=== PATIENT | male | born 1995 | race Caucasian/White ===

== ENCOUNTER 2021-03-18 12:07 | Outpatient (REF) | payer BC, SELFPAY ==
[2021-03-18 14:03] LABS: COVID-19 Test Negative (Negative)
== END 2021-03-18 12:08 | disposition home or self-care (01) ==
LOC: HO.LAB 12:07
PROVIDERS: Visit Provider Internal Medicine
DX: Z20.822 Contact with and (suspected) exposure to COVID-19 (principal)
CPT/HCPCS: 36415; 87635; C9803

== ENCOUNTER 2021-03-27 11:43 | Outpatient (REF) | payer BC, SELFPAY ==
[2021-03-27 14:13] LABS: COVID-19 Test Positive (Negative); IDNOW Serial# 16C4AD1C
== END 2021-03-27 11:44 | disposition home or self-care (01) ==
LOC: HO.LAB 11:43
PROVIDERS: Visit Provider Internal Medicine
DX: Z20.822 Contact with and (suspected) exposure to COVID-19 (principal)
CPT/HCPCS: 36415; 87635; C9803

== ENCOUNTER 2024-01-23 04:10 | Emergency (ER) | payer MEDICAID, SELFPAY ==
--- NOTE | 2024-01-23 | ECG_ITS ---
Test Reason : CHEST PAIN Blood Pressure : / mmHG Vent. Rate : 066 BPM Atrial Rate : 066 BPM P-R Int : 124 ms QRS Dur : 146 ms QT Int : 420 ms P-R-T Axes : 063 -16 080 degrees QTc Int : 440 ms Normal sinus rhythm [id number]-[id number]-Fegjn Abnormal ECG No previous ECGs available Referred By: Generic ED Physician Electronically Signed By:Yovany Kramer
--- NOTE | ~2024-01-23 | XR_ITS ---
EXAMINATION: XR CHEST CLINICAL INFORMATION: Cough. COMPARISON: None available. TECHNIQUE: Frontal view of the chest was obtained. FINDINGS: The lung volumes are low. The cardiomediastinal silhouette is normal. There is no focal lung consolidation or pleural effusions. The bony structures and the soft tissues are unremarkable. XR/XR chest 1V IMPRESSION: Low lung volumes. No evidence for acute cardiopulmonary process. Electronically signed by: Chico Darling MD 01/23/2024 06:07 AM EDT
[2024-01-23 04:19] VITALS: BP 141/81; PULSE 69; RESP 20; TEMP 36.8; O2SAT 97; BMI 26.6
--- NOTE | 2024-01-23 04:42 | ED.URI ---
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 body aches for last 3 days getting worse dry cough also felt light headed Related Data Previous Rx's ?Medication ?Instructions ?Recorded benzonatate 200 mg capsule 200 mg PO TID PRN cough #20 caps 01/23/24 cefuroxime axetil 500 mg tablet 500 mg PO BID 7 days #14 tabs 01/23/24 Allergies Allergy/AdvReac Type Severity Reaction Status Date / Time Penicillins Allergy Hives Verified 01/23/24 04:22 Review of Systems Review of Systems: Yes all other systems are reviewed and are negative [facility] Social History Social History Smoked in Last 30 Days: No Use of substances other than those prescribed or required for medical reasons: No Advance Directives: No Physical Exam Vital Signs: Vital Signs: Last Vital Signs Temp 98.6 F 01/23/24 06:11 Pulse 74 01/23/24 06:11 Resp 16 01/23/24 06:11 BP 130/96 H 01/23/24 06:11 Pulse Ox 98 01/23/24 06:11 O2 Del Method Room Air 01/23/24 06:11 BMI result Body Mass Index 26.6 Appearance: Alert. Oriented X3. No acute distress. ENT: Pharynx erythematous Oral Mucosa moist Neck: Normal inspection. Neck supple. CVS: Normal heart rate and rhythm. Pulses normal. Respiratory: No respiratory distress. Equal air entry bilateral, no wheezing/rales/rhonchi Abdomen: Soft and nontender. Bowel sounds are present, Skin: Skin warm and dry. Normal skin color. Normal skin turgor. Extremities: No lower extremity edema. No calf tenderness Neuro: Oriented X 3. No motor deficit. Medications Administered Discontinued Medications Generic Name Dose Route Start Last Admin Trade Name Freq PRN Reason Stop Dose Admin Benzonatate 200 mg 01/23/24 04:48 01/23/24 05:27 Benzonatate 100 Mg Capsule PO 01/23/24 04:49 200 mg ONCE ONE Administration Cefuroxime Axetil 500 mg 01/23/24 04:48 01/23/24 05:27 Cefuroxime Axetil 500 Mg Tablet PO 01/23/24 04:49 500 mg ONCE ONE Administration Medical Decision Making Medical Decision Making [facility] Narrative: Patient has significant pharyngeal erythema although strep test was negative COVID flu RSV also negative clinically look like strep throat patient will prescribe cefuroxime advised to follow with PCP if not better Lab Data MDM Lab Attestation statement: I reviewed the patient's lab results. Labs: Lab Results 01/23/24 Range/Units 04:47 Influenza Type A (PCR) NEGATIVE (Negative) Influenza Type B (PCR) NEGATIVE (Negative) RSV RNA Qual (PCR) NEGATIVE (Negative) SARS-CoV-2 RNA (RT-PCR) NEGATIVE (Negative) S. pyogenes GrpA YVAN Negative (Negative) Discharge Plan Discharge Clinical Impression: Pharyngitis Patient Disposition: Home, Self-Care Instructions: Pharyngitis (ED) Additional Instructions: Drink plenty of fluids Take antibiotics and cough drops as prescribed Follow up with PCP if not better Prescriptions: New benzonatate 200 mg capsule 200 mg PO TID PRN (Reason: cough) Qty: 20 0RF cefuroxime axetil 500 mg tablet 500 mg PO BID 7 Days Qty: 14 0RF Stand Alone Forms: Work/School Release Interventions: ED Discharge Assessment Last Done: 01/23/24 06:11 Discharge Date/Time: 01/23/24 06:12 Print Language: Sami
--- NOTE | 2024-01-23 04:51 | PC.NURSE ---
pt from home, a&ox4, respirations even and unlabored. pt reporting onset up respiratory symptoms x3 days. pt reports congestions, chest heaviness, nausea and blurred vision. pt denies sob and vomiting and diarrhea. 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 vss.
[2024-01-23] MEDS: cefuroxime axetiL 500 MG TABLET PO (05:27)
[2024-01-23] MEDS: Benzonatate 100 MG CAPSULE 200 MG PO (05:27)
--- NOTE | 2024-01-23 05:28 | PC.NURSE ---
pt medicated per mar, tolerated well with water.
[2024-01-23 05:32] LABS: Influenza A PCR NEGATIVE (Negative); Influenza B PCR NEGATIVE (Negative); Resp Syncy Virus RNA Qual PCR NEGATIVE (Negative); SARS COV2 PCR INHOUSE NEGATIVE (Negative)
[2024-01-23 05:48] LABS: IDNOW Serial# 6674DD1D; Strep A Nucleic Acid Negative (Negative)
[2024-01-23 06:11] VITALS: BP 130/96; PULSE 74; RESP 16; TEMP 37; O2SAT 98
== END 2024-01-23 06:12 | disposition home or self-care (01) ==
PROVIDERS: Emergency Provider Internal Medicine
DX: J02.9 Acute pharyngitis, unspecified (principal); R05.9 Cough, unspecified; Z03.818 Encounter for observation for suspected exposure to other biological agents ruled out
CPT/HCPCS: 0241U; 71045; 87651; 93005; 99283; 99284

== ENCOUNTER → 2024-01-23 04:28 | Outpatient (BNV) | payer SELFPAY | PROVIDERS: Emergency Provider Internal Medicine; Visit Provider Internal Medicine Cardiovascular Disease | DX: R94.31 Abnormal electrocardiogram [ECG] [EKG] (principal) | CPT/HCPCS: 93010 ==

== ENCOUNTER 2024-09-11 01:33 | Emergency (ER) | payer MEDICAID, SELFPAY ==
[2024-09-11 01:36] VITALS: BP 140/70; PULSE 104; O2SAT 99
[2024-09-11 01:38] VITALS: BP 119/71; PULSE 87; RESP 23; TEMP 36.4; O2SAT 99; BMI 31.0
--- NOTE | 2024-09-11 02:05 | ED.GENADULT ---
HPI - General Adult General Chief complaint: General Medical Stated complaint: Allergic reaction back and chest Time Seen by Provider: 09/11/24 01:40 Source: patient and EMS Mode of arrival: EMS Limitations: no limitations History of Present Illness ED Provider: Dr. Lexi Olmedo HPI narrative: Patient comes to the emergency room complaining of sunburn in the torso. Patient complaining of itching in his and pain. Patient called the ambulance, he was given IV Benadryl, states that the itchiness improve. Patient states that he has been trying to keep up with his fluids Related Data Previous Rx's ?Medication ?Instructions ?Recorded benzonatate 200 mg capsule 200 mg PO TID PRN cough #20 caps 01/23/24 cefuroxime axetil 500 mg tablet 500 mg PO BID 7 days #14 tabs 01/23/24 ketorolac 10 mg tablet 10 mg PO Q8H PRN pain #10 tabs 09/11/24 Allergies Allergy/AdvReac Type Severity Reaction Status Date / Time No Known Allergies Allergy Verified 09/11/24 01:44 Review of Systems Review of Systems: Constitutional : No Weight loss, No Fever, No Chills, No Night Sweats, No Fatigue, No Malaise ENT/Mouth : No Hearing loss, No Ear Pain, No Nasal Congestion, No Sinus Pain, No Hoarseness, No sore throat, No Rhinorrhea, No Swallowing Difficulty Eyes: No Eye Pain, No Swelling, No Redness, No Foreign Body, No Discharge, No Vision Changes Cardiovascular : No Chest Pain, No SOB, No Dyspnea on Exertion, No Orthopnea, No Edema, No Palpitations Respiratory : No Cough, No Sputum, No Wheezing, No Smoke Exposure, No Dyspnea Gastrointestinal : No Nausea, No Vomiting, No Diarrhea, No Constipation, No abdominal Pain, No Hematochezia, No Melena Genitourinary : no irregular bleeding, No Dysuria, No Urinary Frequency, No Hematuria, No Urinary Incontinence, No Urgency, No Flank Pain, No Urinary Flow Changes, No Hesitancy Musculoskeletal : No joint pain, No Myalgias, No Joint Swelling Skin : Complaining of an itchy skin, some burn in the shoulders back and upper chest Neuro : No Weakness, No Numbness, No Paresthesias, No Loss of Consciousness, No Dizziness, No Headache Psych : No Anxiety/Panic, No Depression, No SI/HI/AH/VH, No Social Issues, Heme/Lymph: No Bruising, No Bleeding,No Lymphadenopathy Endocrine : No Polyuria, No Polydipsia, No Temperature Intolerance [facility] Social History Social History Advance Directives: No Advance Directives Information Provided: Yes Physical Exam ED Vital Signs: Vital Signs - 24 hr 09/11/24 01:38 Temperature 97.6 F Pulse Rate 87 Respiratory Rate 23 H Blood Pressure 119/71 Pulse Oximetry 99 Oxygen Delivery Method Room Air BMI result Body Mass Index 31.0 Const Other: Appearance: Alert. Oriented X3. No acute distress. Eyes: Pupils equal, round and reactive to light. ENT: Pharynx normal. Neck: Normal inspection. Neck supple. No lymph nodes noted. No crepitus CVS: Normal heart rate and rhythm. Pulses normal. Normal S1 and S2 Respiratory: No respiratory distress. Breath sounds normal. No Wheezing. No rales Abdomen: Soft and nontender. No rigidity. No distention. Skin: Patient has a sunburn over the chest shoulders upper back, blanching erythema Extremities: No lower extremity edema. No Lacerations. No Rash Neuro: Oriented X 3. No motor deficit. No sensory deficit. Moving all extremities. No slurred speech. CN 2 through 12 grossly intact Psych: calm, cooperative, normal affect Medications Administered Discontinued Medications Generic Name Dose Route Start Last Admin Trade Name Freq PRN Reason Stop Dose Admin Ketorolac Tromethamine 30 mg 09/11/24 02:03 09/11/24 02:11 Ketorolac Tromethamine 30 Mg/Ml Vial IVPUSH 09/11/24 02:04 30 mg ONCE ONE Administration Medical Decision Making Medical Decision Making MDM Narrative: Patient received Benadryl prior to arrival, here in the emergency room, patient received Toradol for pain. Obtaining basic labs Overall, patient's symptoms likely secondary to a sun burn My interpretation of labs: No significant abnormality in patient's hematology or chemistry Patient had symptomatic improvement with Benadryl that was given prior to arrival and Toradol. Lab Data 09/11/24 02:37 09/11/24 02:37 Labs: Lab Results 09/11/24 Range/Units 02:37 WBC 9.7 (4.8-10.8) X10*3/uL RBC 4.53 L (4.60-5.80) X10*6/uL Hgb 14.1 (14.0-18.0) g/dl Hct 39.1 L (42.0-52.0) % MCV 86.3 (80.0-98.0) fL MCH 31.1 (27.0-33.0) pg MCHC 36.1 H (31.0-36.0) g/dl RDW 12.0 (11.0-16.0) % Plt Count 193 (160-400) X10*3/uL MPV 9.9 (9.4-12.4) fL Immature Gran % (Auto) 0.2 (0.0-0.4) % Neut % (Auto) 62.8 (45-73) % Lymph % (Auto) 27.6 (20-40) % [place] % (Auto) 8.0 (2-11) % Eos % (Auto) 1.0 (0-4) % Baso % (Auto) 0.4 (0-2) % Lymph # (Auto) 2.7 (1.2-4.9) X10*3/uL [place] # (Auto) 0.8 (0.1-1.2) X10*3/uL Eos # (Auto) 0.1 (0.0-0.4) X10*3/uL Baso # (Auto) 0.0 (0.0-0.2) X10*3/uL Abs Immat Gran (auto) 0.02 (0.00-0.03) X10*3/uL Absolute Neuts (auto) 6.1 (2.0-8.3) x10*3/uL Absolute Nucleated RBC 0.000 (0.0-0.012) X10*3/uL Nucleated RBC % (auto) 0.0 (0.0-0.2) /100WBC Sodium 141 (135-145) mmol/L Potassium 3.6 (3.3-5.1) mmol/L Chloride 106 (96-108) mmol/L Carbon Dioxide 25 (22-29) mmol/L Anion Gap 14 (12-20) BUN 12 (9-16) mg/dL Creatinine 0.87 (0.5-1.4) mg/dL Estim Creat Clear Calc 141.4 Estimated GFR > 60 Random Glucose 104 (60-115) mg/dL Calcium 9.5 (8.4-10.2) mg/dL Total Bilirubin 0.2 (0.0-1.0) mg/dL Direct Bilirubin < 0.2 (0.0-0.5) mg/dL AST 45 H (5-37) U/L ALT 94 H (0-40) U/L Alkaline Phosphatase 105 (39-117) U/L Total Protein 7.5 (6.5-8.0) g/dL Albumin 4.6 (3.5-5.0) g/dL Discharge Plan Discharge Clinical Impression: Sunburn Patient Disposition: Home, Self-Care Instructions: Sunburn (ED), Cold Compress or Soak (ED) Additional Instructions: You may use calamine or aloe vera for the affected sunburn areas. Please follow-up with your primary care physician tomorrow. If you have any worsening or new symptoms, please return to the emergency room or call 911 Prescriptions: New ketorolac 10 mg tablet 10 mg PO Q8H PRN (Reason: pain) Qty: 10 0RF Rx Instructions: Do not use this medication with any other NSAIDs, Tylenol okay to use No Action benzonatate 200 mg capsule 200 mg PO TID PRN (Reason: cough) Qty: 20 0RF cefuroxime axetil 500 mg tablet 500 mg PO BID 7 Days Qty: 14 0RF Print Language: Macedonian
[2024-09-11] MEDS: Ketorolac Tromethamine 30 MG/ML VIAL IVPUSH (02:11)
[2024-09-11 02:42] LABS: Basophils Percent Auto 0.4 % (0-2); Eosinophils Absolute Auto 0.1 X10*3/uL (0.0-0.4); Hematocrit 39.1 % (42.0-52.0); Hemoglobin 14.1 g/dl (14.0-18.0); Imm Gran Abs Auto 0.02 X10*3/uL (0.00-0.03); Imm Gran Pct Auto 0.2 % (0.0-0.4); Lymphocytes Absolute Auto 2.7 X10*3/uL (1.2-4.9); Lymphocytes Percent Auto 27.6 % (20-40); MANUAL DIFF FLAG NO; Mean Corpuscular HGB Conc 36.1 g/dl (31.0-36.0); Mean Corpuscular Hemoglobin 31.1 pg (27.0-33.0); Mean Corpuscular Volume 86.3 fL (80.0-98.0); Mean Platelet Volume 9.9 fL (9.4-12.4); Monocytes Absolute Auto 0.8 X10*3/uL (0.1-1.2); Neutrophils Absolute Auto 6.1 x10*3/uL (2.0-8.3); Neutrophils Percent Auto 62.8 % (45-73); Platelet Count 193 X10*3/uL (160-400); Red Blood Count 4.53 X10*6/uL (4.60-5.80); White Blood Count 9.7 X10*3/uL (4.8-10.8)
[2024-09-11 02:57] LABS: Alanine Aminotransferase 94 U/L (0-40); Albumin Level 4.6 g/dL (3.5-5.0); Alkaline Phosphatase 105 U/L (39-117); Anion Gap 14 (12-20); Aspartate Amino Transferase 45 U/L (5-37); Bilirubin Direct < 0.2 mg/dL (0.0-0.5); Bilirubin Total 0.2 mg/dL (0.0-1.0); Blood Urea Nitrogen 12 mg/dL (9-16); Calcium 9.5 mg/dL (8.4-10.2); Carbon Dioxide 25 mmol/L (22-29); Chloride 106 mmol/L (96-108); Creatinine Clr Calc Pharmacy 141.4; Estimated Glomerular Filt Rate > 60; Glucose Random 104 mg/dL (60-115); Potassium 3.6 mmol/L (3.3-5.1); Sodium 141 mmol/L (135-145); Total Protein 7.5 g/dL (6.5-8.0)
[2024-09-11 03:35] VITALS: BP 130/46; PULSE 57; RESP 20; TEMP 36.4; O2SAT 99
== END 2024-09-11 03:35 | disposition home or self-care (01) ==
PROVIDERS: Emergency Provider Emergency Medicine
DX: L55.9 Sunburn, unspecified (principal)
CPT/HCPCS: 36415; 80048; 80076; 85025; 96374; 99283; 99284; J1885

== ENCOUNTER 2025-01-19 00:19 | Emergency (ER) | payer MEDICAID, SELFPAY ==
[2025-01-19 00:24] VITALS: BP 134/59; PULSE 69; RESP 16; TEMP 36.5; O2SAT 97; BMI 25.4
--- NOTE | 2025-01-19 00:38 | ED_ITS ---
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 Patient states he is coming in for resolved low back pain and clearance to return to work. 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 Feels that during the restraint he twisted or pulled his low back he points to the paraspinal lumbar region both sides. He denies any neurologic symptoms at that time he took some NSAIDs and used topical analgesics which resolved the pain. At no point has he had any incontinence weakness or sensory changes and he feels well at this time comes in only for medical clearance to return to [employer] the [employer] shifts. No regular medications surgeries no significant or serious low back traumatic injuries Related Data Previous Rx's ?Medication ?Instructions ?Recorded benzonatate 200 mg capsule 200 mg PO TID PRN cough #20 caps 01/23/24 cefuroxime axetil 500 mg tablet 500 mg PO BID 7 days # 14 tabs 01/23/24 ketorolac 10 mg tablet 10 mg PO Q8H PRN pain #10 ta bs 09/11/24 Allergies Allergy/AdvReac Type Severity Reaction Status Date / Time No Known Allergies Allergy Verified 01/19/25 00:26 [facility] Social History Social History Advance Directives: No Advance Directives Information Provided: Yes Physical Exam Exam: Exam: GENERAL: Well appearing. No apparent distress. Alert. HEAD/NECK: No visual trauma. EYES: Normal to inspection. No conjunctival erythema. No discharge. ENMT: Hearing grossly normal. External nose normal. RESPIRATORY: Respiratory effort normal. CARDIOVASCULAR: Additional details (Grossly well perfused). SKIN: No jaundice. NEUROLOGICAL: Alert. Moving all extremities x4. Additional details (No gross motor deficits. Normal tone. ). Low back nontender full range of motion with flexion-extension and rotation of the torso PSYCHIATRIC: Alert. Appearance appropriate for situation. Vital Signs: Vital Signs: Last Vital Signs Temp 97.7 F 01/19/25 00:24 Pulse 69 01/19/25 00:24 Resp 16 01/19/25 00:24 BP 134/59 L 01/19/25 00:24 Pulse Ox 97 01/19/25 00:24 O2 Del Method Room Air 01/19/25 00:24 BMI result Body Mass Index 25.4 Medical Decision Making Medical Decision Making MDM Narrative: Medical Decision Makin-year-old male with resolved low back injury. Healthy no red flag signs or symptoms. Pain-free here. Ambulatory comfortable we will clear for work Preliminary Favored Differential Diagnosis: Resolved low back strain, lumbar strain among additional considered etiologies Testing Interpreted Independently: ?See below for details Radiology or Lab testing Results Reviewed: ?See below for details Consults: ?See below for details Independent Historians/External Chart Reviews: ?See below for details Social Determinants of Health Impacting MDM/Planning: ?See below for details Discharge Plan Discharge Clinical Impression: Strain of lumbar region Patient Disposition: Home, Self-Care Instructions: Back Pain (ED) Prescriptions: No Action benzonatate 200 mg capsule 200 mg PO TID PRN (Reason: cough) Qty: 20 0RF cefuroxime axetil 500 mg tablet 500 mg PO BID 7 Days Qty: 14 0RF ketorolac 10 mg tablet 10 mg PO Q8H PRN (Reason: pain) Qty: 10 0RF Rx Instructions: Do not use this medication with any other NSAIDs, Tylenol okay to use Stand Alone Forms: Work/School Release Discharge Date/Time: 01/19/25 02:08 Print Language: Welsh
== END 2025-01-19 02:08 | disposition home or self-care (01) ==
PROVIDERS: Emergency Provider Emergency Medicine
DX: S39.012A Strain of muscle, fascia and tendon of lower back, initial encounter (principal); X50.1XXA Overexertion from prolonged static or awkward postures, initial encounter; Y93.9 Activity, unspecified; Y92.9 Unspecified place or not applicable; Y99.8 Other external cause status
CPT/HCPCS: 99281; 99282